=== PATIENT | female | born 1980 ===

== ENCOUNTER 2021-01-20 07:30 | Inpatient (IN) | payer OTHER ==
[~2021-01-20] VITALS: Ht 162.6 cm; Wt 89.8 kg
[2021-01-20] MEDS ORDERED: SIMVASTATIN10 MG PO (08:49)
[2021-01-20] MEDS ORDERED: METFORMIN HCL500 M3 PO (08:49)
[2021-01-20] MEDS ORDERED: D3 + K2 DOTS 11 EACH PO (08:49)
[2021-01-20] MEDS ORDERED: ZINC50 M1 PO (08:50)
[2021-01-20] MEDS ORDERED: B COMPLEX1 EACH PO (08:50)
[2021-01-20] MEDS ORDERED: IRON236 MG PO (08:50)
[2021-01-20] MEDS ORDERED: FOLIC ACID0.8 M1 PO (08:50)
[2021-01-20] MEDS ORDERED: VITAMIN C500 M6 PO (08:51)
[2021-01-26] MEDS ORDERED: SIMVASTATIN20 MG (10:46)
[2021-01-26] MEDS ORDERED: CRYSELLE-28 TA1 EACH (10:46)
== END 2021-01-29 17:49 | disposition home or self-care (01) | DRG 743 ==
LOC: O/R 01-26 05:14 → OB/GYN 01-26 07:00 → O/R 01-26 15:02 → OB/GYN 01-26 15:03
PROVIDERS: ADMIT Obstetrics & Gynecology; ATTEND Obstetrics & Gynecology
PROC: 0UB70ZZ Excision of Bilateral Fallopian Tubes, Open Approach (ICD-10-PCS; 2021-01-26)
PROC: 0UT90ZZ Resection of Uterus, Open Approach (ICD-10-PCS; principal; 2021-01-26 07:00)
DX: D25.1 Intramural leiomyoma of uterus (principal); D25.2 Subserosal leiomyoma of uterus; N72 Inflammatory disease of cervix uteri; N84.0 Polyp of corpus uteri; N84.1 Polyp of cervix uteri; N92.0 Excessive and frequent menstruation with regular cycle; E11.9 Type 2 diabetes mellitus without complications